=== PATIENT | female | born 1995 | race Two or more races ===

== ENCOUNTER 2020-12-08 22:33 | Emergency (ER) | payer OTHER ==
[~2020-12-08] VITALS: Ht 157.5 cm; Wt 96.8 kg
[2020-12-08 23:00] VITALS: BP 127/74
[2020-12-08] MEDS ORDERED: FLUORESCEIN SODIUM 1 MG STRIP OS ONE (23:00)
[2020-12-08] MEDS ORDERED: PROPARACAINE HCL 0.5% 15 ML OPHTHALMIC SOLUTION OS ONE (23:00)
[2020-12-08] MEDS ORDERED: ERYTHROMYCIN 0.5% 3.5 GM TUBE OPHTHALMIC OINTMENT OS ONE (23:15)
[2020-12-08] MEDS ORDERED: ACETAMINOPHEN 500 MG TABLET PO ONE (23:30)
== END 2020-12-08 23:33 | disposition home or self-care (01) ==
LOC: EMS 22:37
DX: O9A.313 Physical abuse complicating pregnancy, third trimester (principal); S05.02XA Injury of conjunctiva and corneal abrasion without foreign body, left eye, initial encounter; X58.XXXA Exposure to other specified factors, initial encounter; Y93.89 Activity, other specified; Y92.89 Other specified places as the place of occurrence of the external cause; Y99.8 Other external cause status; Z3A.32 32 weeks gestation of pregnancy
CPT/HCPCS: 99284; Z7502; Z7610